=== PATIENT | male | born 1975 | race Caucasian/White ===

== ENCOUNTER 2023-08-22 05:50 | Day surgery (SDC) | payer BC ==
[2023-08-21 09:27] VITALS: BMI 48.7
[2023-08-22] MEDS ORDERED: Sevoflurane 250 ML INH ANEST BOTTLE ONE (07:15)
[2023-08-22] MEDS ORDERED: KETAMINE 100 MG/ML (5ML VIAL) ONE (07:58)
[2023-08-22] MEDS ORDERED: Lidocaine 1% PF 5 ML VIAL ONE (07:59)
[2023-08-22] MEDS ORDERED: Lidocaine Viscous Sol 2% 15 ml UD Cup ONE (07:59)
[2023-08-22] MEDS ORDERED: PROPOFOL 20 ML ONE (08:00)
[2023-08-22] MEDS ORDERED: Midazolam HCl 2 mg/2 ml Vial ONE (08:07)
== END 2023-08-22 09:20 | disposition home or self-care (01) ==
LOC: CSHSDC 05:50
PROVIDERS: ATTEND Surgery
PROC: 0DB68ZX Excision of Stomach, Via Natural or Artificial Opening Endoscopic, Diagnostic (ICD-10-PCS; principal; 2023-08-22)
PROC: 0DB38ZX Excision of Lower Esophagus, Via Natural or Artificial Opening Endoscopic, Diagnostic (ICD-10-PCS; principal; 2023-08-22)
DX: K21.9 Gastro-esophageal reflux disease without esophagitis (principal); K29.50 Unspecified chronic gastritis without bleeding; K31.A0 Gastric intestinal metaplasia, unspecified; E66.01 Morbid (severe) obesity due to excess calories; E11.9 Type 2 diabetes mellitus without complications; K44.9 Diaphragmatic hernia without obstruction or gangrene; G47.33 Obstructive sleep apnea (adult) (pediatric); E78.5 Hyperlipidemia, unspecified; F32.A Depression, unspecified; Z88.2 Allergy status to sulfonamides; Z88.1 Allergy status to other antibiotic agents; Z79.899 Other long term (current) drug therapy; Z79.84 Long term (current) use of oral hypoglycemic drugs; Z68.42 Body mass index [BMI] 45.0-49.9, adult
CPT/HCPCS: 88305; J2250; J2704